=== PATIENT | male | born 1995 | race Caucasian/White ===

== ENCOUNTER 2020-05-06 13:03 | Emergency (ER) | payer OTHER ==
[~2020-05-06] VITALS: Ht 180.3 cm; Wt 164.8 kg
[~2020-05-06 13:03] MED LIST: NEOPOLHCSU LEFTEAR; PHENTERMINE; PROC10 PO
[2020-05-06] MEDS ORDERED: Norco 5-325 Ta1 EACH PO (14:41)
== END 2020-05-06 15:00 | disposition home or self-care (01) ==
LOC: ER 13:03
DX: S52.572A Other intraarticular fracture of lower end of left radius, initial encounter for closed fracture (principal); F17.200 Nicotine dependence, unspecified, uncomplicated; W01.0XXA Fall on same level from slipping, tripping and stumbling without subsequent striking against object, initial encounter
CPT/HCPCS: 25605; 73100; 76000; 96374-59; 99152; 99283-25; J1170; J2704; J7030